=== PATIENT | male | born 1990 | race Caucasian/White ===

== ENCOUNTER 2019-08-03 10:54 | Inpatient (IN) | payer MEDICAID ==
[~2019-08-03] VITALS: Ht 190.5 cm; Wt 90.9 kg
[2019-08-03 11:45] LABS: Basophils # (auto) 0.1 uL; Basophils % (auto) 0.8 % (0.0-2.0); Eosinophils # (auto) 0.1 uL; Eosinophils % (auto) 1.3 % (0.0-7.0); Hematocrit 48.7 % (41.0-53.0); Hemoglobin 16.2 g/dL (13.5-17.5); Lymphocytes # (auto) 2.1 uL; Lymphocytes % (auto) 26.1 % (10.0-50.0); Mean Corpuscular Hemoglobin 27.3 pg (28.0-32.0); Mean Corpuscular Hgb Conc. 33.3 g/dL (32.0-36.0); Mean Corpuscular Volume 81.9 fL (80.0-100.0); Monocytes # (auto) 0.9 uL; Monocytes % (auto) 11.1 % (0.0-12.0); Neutrophils # (auto) 4.9 uL; Neutrophils % (auto) 60.7 % (37.0-80.0); Nucleated Red Blood Cells % 0.1 %; Platelet Count (auto) 235 10^3/uL (140-450); Red Blood Cells 5.94 10^6/uL (4.5-5.90); Red Cell Distribution Width 13.3 % (11.8-14.3); White Blood Cell 8.1 10^3/uL (4.4-10.8)
[2019-08-03] MEDS ORDERED: SODIUM CHLORIDE 0.9% 1,000 ML IVB ONE (12:04)
[2019-08-03 12:32] LABS: Albumin 4.4 g/dL (3.4-5.0); Calcium 9.8 mg/dL (8.5-10.1); Magnesium 2.5 mg/dL (1.6-2.6); Potassium 3.7 mmol/L (3.5-5.1)
[2019-08-03 12:37] LABS: BUN/Creatinine Ratio 11.4; Bilirubin, Total 0.4 mg/dL (0.2-1.0); INR 0.95 (0.9-1.15); Partial Thromboplastin Time 27.1 sec (23.64-32.05); Total Protein 8.4 g/dL (6.4-8.2)
[2019-08-03 14:14] LABS: Urine Bacteria FEW /hpf (None Seen); Urine Blood Negative /uL (Negative); Urine Specific Gravity 1.011 (1.001-1.035); Urine WBC 1 /hpf (0 - 3)
[2019-08-03 14:39] LABS: Alcohol, Urine < 3.0 mg/dL (0-5); Amphetamine Screen, Urine NEGATIVE (NEGATIVE); Barbiturate Scree,Urine NEGATIVE (NEGATIVE); Benzodiazephine Screen, Urine NEGATIVE (NEGATIVE); Cannabinoid Screen, Urine NEGATIVE (NEGATIVE); Cocaine Screen, Urine NEGATIVE (NEGATIVE); Opiate Scree,Urine NEGATIVE (NEGATIVE); Phencyclidine Screen, Urine NEGATIVE (NEGATIVE)
[2019-08-03] MEDS ORDERED: NITROGLYCERIN 0.4 MG SL TAB SL PRN (17:00)
[2019-08-03] MEDS ORDERED: MORPHINE SULF INJ 2 MG/ML SYRINGE 1ML IV PRN ×2 (17:00)
[2019-08-03] MEDS ORDERED: ONDANSETRON HCL 4 MG/2 ML VIAL IV PRN (17:00)
--- NOTE | 2019-08-03 17:50 | NUR ---
MS admit from ER FÁTIMA PIZARRO admitted to tele/MS after SBAR received. Patient oriented to Tiffanie Palma RN, unit, room, bed, and unit policies regarding patient care and visiting hours. Patient weighed by bed scale and encouraged to call if he needs something. All questions and concerns addressed, patient verbalized understanding. Note: at bedside.
--- NOTE | 2019-08-03 18:11 | NUR ---
Called the Dietary. Left a message that patient did not get the Regular Diet dinner tray.
--- NOTE | 2019-08-03 19:20 | NUR ---
Opening Shift Note Received dreport from ralf Moreno RN. Assumed care of patient, awake and alert. No S/S of distress/SOB or pain. Insructed on POC and to callfor assist PRN, will continue to monitor for changes Q1hr and PRN.
[2019-08-03 20:00] VITALS: BP 127/81
[2019-08-03 21:46] VITALS: BP 127/81
[2019-08-03] MEDS: ACETAMINOPHEN 500 MG TAB PO PRN (22:40)
--- NOTE | 2019-08-03 23:00 | NUR ---
ROUNDS PATIENT IS C/O PAIN TO BACK OF 6/10. GIVEN PAIN MEDICATION. WILL MONITOR.
[2019-08-03] MEDS: HYDROcodone-ACET 5/325MG TAB PO PRN (23:09)
--- NOTE | 2019-08-04 02:00 | NUR ---
PATIENT IS RESTING IN BED WITH EYES CLOSED, NO DISTRESS NOTED.
--- NOTE | 2019-08-04 05:26 | NUR ---
ROUNDS Patient is alert and awake, no distress noted and patient states "i'm ok, no pain". Will monitor
[2019-08-04 05:32] VITALS: BP 118/60
--- NOTE | 2019-08-04 07:40 | NUR ---
Patient sitting in bed, refused urinal, stated he can get up and go to the bathroom.
[2019-08-04 09:00] VITALS: BP 124/72
[2019-08-04] MEDS: FAMOTIDINE 20 MG TAB PO SCH (10:00)
--- NOTE | 2019-08-04 10:27 | NUR ---
Dr. Tse made aware patient requested Benadryl for itching. ordered Benadryl capsule 25 mg PO Q6 PRN for itching.
--- NOTE | 2019-08-04 10:29 | NUR ---
Dr. Tse at bedside.
[2019-08-04] MEDS: ACETAMINOPHEN 500 MG TAB PO PRN (10:47)
--- NOTE | 2019-08-04 10:47 | NUR ---
Patient stated he has headache. Tylenol PO given for headache. at bedside.
--- NOTE | 2019-08-04 10:50 | NUR ---
Patient refused Pepcid. at bedside.
--- NOTE | 2019-08-04 12:15 | NUR ---
Report given to THIERRY Garcia. Patient awake, oriented x4, no acute distress noted. Endorsed patient to THIERRY Garcia.
--- NOTE | 2019-08-04 12:16 | NUR ---
Transfer of Care Assuming care of patient. Patient is awake and alert. No distress noted. Patient resting in bed with bed locked and lowered with side rails up x2. Instructed patient on the plan of care for today. Call light within reach. at bedside. Will continue to round hourly and as needed.
[2019-08-04] MEDS: HYDROcodone-ACET 5/325MG TAB PO PRN (12:44)
[2019-08-04 13:00] VITALS: BP 125/70
[2019-08-04 17:00] VITALS: BP 124/78
--- NOTE | 2019-08-04 18:45 | NUR ---
Closing Note Patient resting in bed, patient is still complaining of symptoms that brought him in. Awaiting neuro consult. at bedside. Will endorse care to the night cleaner RN.
--- NOTE | 2019-08-04 18:55 | NUR ---
Call to Dr. Pritchett Call to Dr. Pritchett at this time. Made aware of consult. Dr. Pritchett will try and see patient today. and patient aware.
--- NOTE | 2019-08-04 19:20 | NUR ---
Opening Shift Note Received report from ralf Garcia RN. Assumed care of patient, awake and alert. No S/S of distress/SOB or pain. at bedside waiting for Dr Pritchett. Insructed on POC and to call for assist PRN, will continue to monitor for changes Q1hr and PRN.
[2019-08-04 22:00] VITALS: BP 128/70
[2019-08-04] MEDS: diphenhdrAMINE HCL 25 MG CAP PO PRN (22:40)
--- NOTE | 2019-08-05 | NUR ---
ROUNDS PATIENT IS RESTING IN BED WITH EYES CLOSED, NO DISTRESS NOTED.
[2019-08-05 05:00] VITALS: BP 110/62
--- NOTE | 2019-08-05 06:50 | NUR ---
PATIENT IS ALERT AND AWAKE, NO DISTRESS NOTED, SATURATING AT 97% ON ROOM AIR AND PATIENT DENIES PAIN.
--- NOTE | 2019-08-05 07:55 | NUR ---
Opening Shift Note Assumed care of patient, alert and orientated x4. No S/S of distress/SOB or complaints of pain. Patient on safety precautions with bed in lowest position/locked, side rails up x2, and call light within reach. Patient instructed on POC today and to call for assist PRN, will continue to monitor for changes Q1hr and PRN.
[2019-08-05 09:00] VITALS: BP 121/78
[2019-08-05] MEDS: ACETAMINOPHEN 500 MG TAB PO PRN (09:55)
[2019-08-05] MEDS: FAMOTIDINE 20 MG TAB PO SCH (09:55)
[2019-08-05 14:00] VITALS: BP 118/72
[2019-08-05 17:00] VITALS: BP 118/67
--- NOTE | 2019-08-05 17:00 | NUR ---
IV insertion IV access obtained, via clean sterile technique by inserting 22 gauge catheter at right FA after 1 attempt(s). IV secured properly. No trauma to site. Patient tolerated well.
--- NOTE | 2019-08-05 17:10 | NUR ---
IV removal Right FA 22 gauge IV cath DC'd with clean sterile technique, catheter fully intact. Pressure dressing applied to site. Patient tolerated well.
[2019-08-05 22:00] VITALS: BP 128/75
[2019-08-06 05:00] VITALS: BP 119/69
--- NOTE | 2019-08-06 07:30 | NUR ---
Opening Shift Note Assumed care of patient, awake and alert. No S/S of distress/SOB or pain. Instructed on POC and to call for assist PRN, will continue to monitor for changes Q1hr and PRN.
[2019-08-06 09:00] VITALS: BP 119/66
[2019-08-06] MEDS: FAMOTIDINE 20 MG TAB PO SCH (10:02)
[2019-08-06 13:00] VITALS: BP 113/85
--- NOTE | 2019-08-06 14:59 | NUR ---
NUTRITION ASSESSMENT NOTES Please refer to link notes of nutrition screen form filed under the intervention section of the plan of care for further details. Est. Needs: 2100 kcal to 2500 kcal (25-30 kcal/kgBW), 84 gms to 100 gms pro (1.0-1.2 gms/kgBW). Will continue to monitor pertinent labs and reassess nutrient need prn Thank you. Addendum: 08/06/19 at [address] Amended: Links added.
--- NOTE | 2019-08-06 15:30 | NUR ---
Dr. Nelson in to see patient as hospitalist. orthostatic VS: Sitting - B/P 137/84, HR 86. Standing: B/P 128/85, HR 84.
--- NOTE | 2019-08-06 16:39 | NUR ---
MRI brain completed.
--- NOTE | 2019-08-06 17:20 | NUR ---
Dr. Pritchett in to see patient for neurology follow up.
[2019-08-06 21:57] VITALS: BP 128/74
[2019-08-06] MEDS: HYDROcodone-ACET 5/325MG TAB PO PRN (22:16)
[2019-08-07 05:26] VITALS: BP 110/71
[2019-08-07 09:00] VITALS: BP 125/76
[2019-08-07] MEDS: FAMOTIDINE 20 MG TAB PO SCH (09:46)
[2019-08-07 12:40] VITALS: BP 126/80
--- NOTE | 2019-08-07 16:40 | NUR ---
Spoke with Dr. Dorina Hoskins, neurologist. Informed her of the patient's diagnosis and Dr. Nelson's request for a second opinion. Dr. Hoskins states she will review the patient's information and be in to see the patient on Thursday, 08/08. Dr. Nelson informed. The patient and his were informed.
[2019-08-07 17:00] VITALS: BP 126/69
[2019-08-07] MEDS: HYDROcodone-ACET 5/325MG TAB PO PRN ×2 (17:22→23:23)
--- NOTE | 2019-08-07 19:45 | NUR ---
Opening Shift Note Assumed care of patient, awake and alert, oriented x 4. Bilateral hands warm to touch, diaphoretic, brisk capillary refill, with normal sensation and normal strength 5/5. Bilateral feet cold to touch, diaphoretic, capillary refill 3 seconds, normal strength 5/5, able to distinguish dull and sharp sensation but diminished comparable to upper leg, reports sensation of tingling when standing. Bilateral leg strength 2/5, patient reports "legs feel heavy". patient is able to turn in bed independently. patient is able to ambulate using walker with standby assist. patient denies pain at this time. at bedside. On room air with even and unlabored respirations, no S/S of distress or SOB. IV to right forearm intact and patent. Bed low locked position with side rails up x 2 and call light within reach, bed alarm on. Instructed on POC and to call for assist PRN, will continue to monitor for changes Q1hr and PRN.
[2019-08-07 22:00] VITALS: BP 127/76
[2019-08-07] MEDS: diphenhdrAMINE HCL 25 MG CAP PO PRN (22:28)
[2019-08-08 05:43] VITALS: BP 111/76
--- NOTE | 2019-08-08 06:58 | NUR ---
Closing Note patient resting in bed with even and unlabored respirations, no s/s of distress. IV intact and patent. Bed low locked position with side rails up x 2 and call light within reach, bed alarm on. Endorsed care to day shift RN.
[2019-08-08 08:50] VITALS: BP 118/67
[2019-08-08] MEDS: FAMOTIDINE 20 MG TAB PO SCH (09:36)
--- NOTE | 2019-08-08 10:00 | NUR ---
Patient assessment Patient stated that yesterday his feet were ice cold and sweaty. Today his toes are cool but his feet and hands are warm. Patient also stated that he is not having any numbness/tingling in his hands today.
[2019-08-08] MEDS ORDERED: TEMAZEPAM 15 MG CAP PO PRN (10:15)
[2019-08-08 10:42] LABS: Hepatitis B Surface Antibody Negative
--- NOTE | 2019-08-08 11:00 | NUR ---
Dr. Hoskins 2nd opinion Dr. Hoskins called and said that due to her busy workload she would not be able to make it in to see the patient. She asked if it was ok if she saw the patient and did the EMG outpatient. This nurse asked Dr. Fallon if that would be okay and he said it would be ok and to put in a nursing note. Will notify Dr. Hoskins.
--- NOTE | 2019-08-08 12:51 | NUR ---
Assessment Pt is a 29 yr old alert and oriented male. Pt's , Coco, was bedside and is his emergency contact at [phone]. Prior to admit, pt lived with his at her 's mom's house. Prior to admit, pt was ambulatory and independent with ADL's, cooking and cleaning. Pt currently needs the assistance of a walker to ambulate, which the pt does not own. Pt only has insurance coverage through emergency [employer] and does not have enough money to buy one out of pocket. SW will look into donation opportunities for the pt. Pt came in with symptoms of numbness in hands and feet and is currently being administered multiple tests to figure out the diagnosis. Pt is not [place] citizen and is unable to receive financial assistance due to citizenship status. LOLY Bowen, will be talking with the pt about applying for more assistance through [employer]. Pt receives family supports. No AD on file, pt accepted paperwork for POA. Pt will be able to transport home upon d/c. Addendum: 08/08/19 at 1402 by ISABEL MARTELL Amended: Links added.
[2019-08-08 13:00] VITALS: BP 115/71
[2019-08-08 14:06] LABS: Hepatitis B Core IgM Negative; Hepatitis B Surface Antigen Negative (Negative)
[2019-08-08 14:07] LABS: Hepatitis B Core Total AB Negative
--- NOTE | 2019-08-08 15:00 | NUR ---
Neuro consult/aGto Received call from Dr. Hoskins's office that the patient's insurance does not cover their office. This nurse notified Dr. Fallon and asked if there is another neurologist that we should consult for a second opinion. He stated that pt is under the care of Dr. Pritchett.
--- NOTE | 2019-08-08 15:57 | NUR ---
Neuro-2nd opinion Spoke with community outreach coordinator about a Neurologist for a 2nd opinion for patient. She said that because of the patient's insurance, there are not a lot of neurologists that are covered, but that she would contact Dr. Lam to see if that doctor will see the patient here. Notified patient.
--- NOTE | 2019-08-08 16:12 | NUR ---
Patient request/DC Patient wants to know if he can be discharged today due to the fact that he is just waiting for test/lab results and that the neurology consult is not happening at this time. The crude unit operator contacted Dr. Lam' office and they put out a page for the doctor, but unknown when he will be seen. This nurse paged Dr. Fallon to inform him of the patient's wish to be discharged and follow up with a neurologist outpatient. Waiting to hear back.
--- NOTE | 2019-08-08 16:16 | NUR ---
D/C Jose-Dr. Fallon Received return call from Dr. Fallon who said he will discharge the patient tomorrow morning and is hoping to get lab results prior to that time. Will inform patient of this. also said that Dr. Lam only sees patients in ICU, so he patient will need to see him outpatient.
--- NOTE | 2019-08-08 16:30 | NUR ---
DC/AMA Patient, and at bedside, want to leave today. Pt stated he doesn't see any reason to sit here waiting for lab results that he can get outpatient. They said he was already going to be discharged but the discharge was cancelled for a Neuro consult second opinion. Since there isn't a neurologist to do the follow up visit, they want to leave today. They said that Dr. Nelson and another doctor wanted to D/C them over the weekend but waited for the consult. They don't understand why Dr. Fallon won't write the D/C tonight instead of in the morning. They were requesting to leave AMA. When this nurse brought the AMA form, they asked whether they would still get the test results. They were informed that their PCP could still call for the results of the labs that were done. They then asked if there is a different doctor overnight. This nurse informed them that there is another doctor on overnight but that an on-call doctor is not likely to discharge a patient they are unfamiliar with. Tavo Ortiz NP is on from 5-8 pm, and Dr. Lane is transonic engineer overnight. They said they had seen Diana MARTINEZ in the ER and would like to wait and see if he would write a discharge order. Will contact him after 5 pm.
[2019-08-08 17:00] VITALS: BP 123/71
--- NOTE | 2019-08-08 17:18 | NUR ---
Valentín/Flora-Diana Contacted Tavo Ortiz [facility] regarding patient request for discharge. He stated that there are some labs pending. He does not want to write the D/C order and stated the patient could leave AMA if they wanted. This nurse informed the patient that the [facility] would not write the discharge order. Informed them of their options: wait to be D/C'd in the morning, leave AMA now, try contacting the on-call doctor overnight (Domingo). They said they would like to think about it. This nurse informed them that an on-call doctor was unlikely to write a discharge order as they are not familiar with the case.
--- NOTE | 2019-08-08 18:16 | NUR ---
AMA Patient decided to leave [facility]. Risks were explained. Patient asked if Lupus test results were in, they are not resulted yet. Paper was signed. IV was removed. ID band was removed. Telemetry was removed and sent to ICU.
== END 2019-08-08 18:20 | disposition left against medical advice (07) | DRG 48 ==
LOC: ER 10:54 → OVERFLOW 10:55 → WEST WING 17:47 → TELE-WESTW 08-05 02:34
PROVIDERS: ADMIT Nurse Practitioner Acute Care; ATTEND Internal Medicine
DX: G62.9 Polyneuropathy, unspecified (principal); F17.200 Nicotine dependence, unspecified, uncomplicated; R20.2 Paresthesia of skin; R53.1 Weakness; R27.0 Ataxia, unspecified
CPT/HCPCS: 36415; 70450; 70545; 70551; 71045; 80053; 80307; 81001; 82607; 82962; 83735; 84207; 84425; 85025; 85610; 85613; 85670; 85705; 85730; 85732; 86225; 86235; 86703; 86704; 86705; 86706; 86803; 87340; 93005; 94761; 97116; 97163; 97530; G0378